=== PATIENT | female | born 1940 | race Caucasian/White ===

== ENCOUNTER 2019-04-04 21:52 | Emergency (ER) | payer MEDICARE, OTHER ==
[~2019-04-04] VITALS: Ht 170.2 cm; Wt 73.9 kg
[2019-04-04 21:52] VITALS: BP 142/63
--- NOTE | 2019-04-04 22:04 | NUR ---
PT WAS WHEELCHAIRED TO THE RESTROOM TO GIVE A U/A SPECIMEN. VSS
--- NOTE | 2019-04-04 22:09 | NUR ---
PT TAKEN TO RAD VIA WHEELCHAIR
--- NOTE | 2019-04-04 22:16 | NUR ---
89 Y/O F PRESENTED TO ED WITH C/O SOB AND COUGH X 3 WEEKS. BILATERAL WHEEZES TO UPPER LOBES ON EXPIRATION. 96% ON ROOM AIR. PRODUCTIVE COUGH WITH BROWN PHELGM. USED NEBULIZER AND INHALER WITH NO RELIEF. FAMILY AT BEDSIDE. ERMD NOTIFIED. WILL CONTINUE TO MONITOR.
--- NOTE | 2019-04-04 22:16 | NUR ---
PT BIB WHEELCHAIR FROM RAD TO ER BED 11
--- NOTE | 2019-04-04 23:04 | NUR ---
PT O2 SATURATION MAINTAINING AT 975 ON ROOM AIR. FAMILY AT BEDSIDE. WILL CONTINUE TO MONITOR. Addendum: 04/04/19 at 2313 by ABI PT O2 SATURATION MAINTAINING AT 97% ON ROOM AIR. FAMILY AT BEDSIDE. WILL CONTINUE TO MONITOR
[2019-04-05 01:14] VITALS: BP 135/81
--- NOTE | 2019-04-05 01:15 | NUR ---
Pt asleep. visible chest rise and fall. VSS at this time. family at bedside. will continue to monitor.
[2019-04-05] MEDS ORDERED: ALBUTEROL SULFATE/IPRATROPIU 3 ML SOL IH ONE (01:45)
[2019-04-05] MEDS ORDERED: ALBUTEROL 0.083% 2.5 MG/3 ML NEBU INH ONE (01:45)
[2019-04-05] MEDS ORDERED: predniSONE 20 MG TAB PO ONE (01:45)
--- NOTE | 2019-04-05 02:22 | NUR ---
Patient discharged with v/s stable. Written and verbal after care instructions given and explained. Patient alert, oriented and verbalized understanding of instructions. Ambulatory with steady gait. All questions addressed prior to discharge. ID band removed. Patient advised to follow up with PMD. Rx of Prednisone, motrin and albulerol given. Patient educated on indication of medication including possible reaction and side effects. Opportunity to ask questions provided and answered.
== END 2019-04-05 02:22 | disposition home or self-care (01) ==
LOC: MED 21:52
DX: R05 Cough (principal); R06.02 Shortness of breath; R07.89 Other chest pain; J45.909 Unspecified asthma, uncomplicated; E11.9 Type 2 diabetes mellitus without complications; I10 Essential (primary) hypertension; E78.5 Hyperlipidemia, unspecified
CPT/HCPCS: 71045; 81002; 93005; 94640; 99283; J7512; J7613; J7620; Q0092

== ENCOUNTER 2019-10-06 12:16 | Inpatient (IN) | payer OTHER, MEDICAID ==
[~2019-10-06] VITALS: Ht 157.5 cm; Wt 79.4 kg
[2019-10-06 12:27] VITALS: BP 141/51
--- NOTE | 2019-10-06 12:34 | NUR ---
PT AMBULATED TO BED 4.
[2019-10-06] MEDS ORDERED: KETOROLAC 30 MG/ML VIAL IVP ONE (12:45)
[2019-10-06] MEDS ORDERED: ONDANSETRON 4 MG/2 ML VIAL IVP ONE (12:45)
[2019-10-06] MEDS ORDERED: NACL 0.9% 1,000 ML IV SCH (12:45)
--- NOTE | 2019-10-06 12:50 | NUR ---
79 y/o female presented with n/v/d and abd pain x1 day. per patient pain is 10/10, pressure sensation. per pt has nka. medical hx of dm, htn, hld, stomach problems. per pt has had this problem in the past. pt takes medication on regular basis, was not able to state medications. last oral intake yesterday night and tolerated well. bowel sounds hyperactive. side rail x1. family at bedside.
--- NOTE | 2019-10-06 12:53 | NUR ---
PT PROVIDED 1 CC OF URINE AT THIS TIME.
--- NOTE | 2019-10-06 12:55 | NUR ---
LAB AT BEDSIDE
--- NOTE | 2019-10-06 13:00 | NUR ---
PTS BS IS CURRENTLY 110 FROM LAB DRAW
[2019-10-06 13:12] LABS: BASOPHILS % (AUTO) 0.2 % (0.0-2.0); EOSINOPHILS % (AUTO) 0.1 % (0.0-4.0); HEMATOCRIT 34.4 % (36-48); LYMPHOCYTES # (AUTO) 0.8 K/uL (2.5-16.5); LYMPHOCYTES % (AUTO) 13.3 % (20.5-51.1); MEAN CORPUSCULAR HEMOGLOBIN 29 pg (27-31); MEAN CORPUSCULAR HGB CONC 32 g/dL (33-37); MEAN CORPUSCULAR VOLUME 89.5 fL (80-94); MONOCYTES # (AUTO) 0.4 K/uL (0.8-1.0); NEUTROPHILS # (AUTO) 4.6 K/uL (1.8-7.7); NEUTROPHILS % (AUTO) 79.4 % (42.2-75.2); PLATELET COUNT (AUTO) 216 K/uL (140-450); RED BLOOD CELL COUNT(AUTO) 3.85 MIL/uL (4.20-5.40); WHITE BLOOD COUNT (AUTO) 5.8 K/uL (4.8-10.8)
--- NOTE | 2019-10-06 13:12 | NUR ---
PT COLLECTED URINE ENOUGH FOR URINE DIP, BUT NOT UA. DR ZHANG MADE AWARE, URINE DIP RESULTS SHOWN, WILL ASK PT TO COLLECT MORE URINE LATER.
[2019-10-06 13:18] LABS: ANION GAP 11.5 (8-16); CARBON DIOXIDE 28.7 mmol/L (21-32); CHLORIDE 104 mmol/L (98-107); CREATININE 0.8 mg/dL (0.6-1.3); GLUCOSE 110 mg/dL (74-106); POTASSIUM 4.2 mmol/L (3.5-5.1); SODIUM SERUM 140 mmol/L (136-145); UREA NITROGEN, BLOOD 16 mg/dL (7-18)
[2019-10-06 13:26] LABS: ALBUMIN 2.7 g/dL (3.4-5.0); ASPARTATE AMINOTRANSFERASE 18 U/L (15-37); TOTAL BILIRUBIN 0.3 mg/dL (0.0-1.0)
--- NOTE | 2019-10-06 14:00 | NUR ---
ANOTHER URINE SAMPLE COLLECTED AND WALKED DIRECTLY TO LAB
[2019-10-06 14:12] LABS: APPEARANCE,URINE CLEAR (CLEAR); BILIRUBIN,URINE NEGATIVE (NEGATIVE); BLOOD, URINE NEGATIVE (NEGATIVE); COLOR,URINE YELLOW (YELLOW); LEUKOCYTE ESTERASE ,URINE TRACE (NEGATIVE); NITRITE, URINE NEGATIVE (NEGATIVE); UGLUCOSE NEGATIVE (NEGATIVE)
[2019-10-06 14:14] LABS: LIPASE 7117 U/L (73-393)
[2019-10-06 14:18] LABS: RBC,URINE NONE SEEN /HPF (0-5)
[2019-10-06] MEDS ORDERED: ASPI-1205 PO (14:36)
[2019-10-06] MEDS ORDERED: METF1TER PO (14:36)
[2019-10-06] MEDS ORDERED: ENAL5TAB48 PO (14:36)
[2019-10-06] MEDS ORDERED: MECL-270 PO (14:36)
[2019-10-06] MEDS ORDERED: ALBU0.0912 IH (14:36)
[2019-10-06] MEDS ORDERED: NIAC500T30 PO (14:36)
[2019-10-06] MEDS ORDERED: MONT10TA35 PO (14:36)
[2019-10-06] MEDS ORDERED: ESCI10TA PO (14:36)
[2019-10-06] MEDS ORDERED: AMLO5TAB PO (14:36)
[2019-10-06] MEDS ORDERED: GABA300C PO (14:36)
[2019-10-06] MEDS ORDERED: BUDE1AER2 IH (14:36)
[2019-10-06] MEDS ORDERED: ATI.5 PO (14:36)
[2019-10-06] MEDS ORDERED: OMEP20TC12 PO (14:36)
[2019-10-06] MEDS ORDERED: CARV3.12 PO (14:36)
[2019-10-06] MEDS ORDERED: FERR325E14 PO (14:36)
[2019-10-06] MEDS ORDERED: SIMV10TA93 PO (14:36)
[2019-10-06] MEDS ORDERED: FURO-570 PO (14:36)
--- NOTE | 2019-10-06 14:39 | NUR ---
EMT AT BEDSIDE FOR EKG
[2019-10-06] MEDS ORDERED: NACL 0.9% 1,000 ML IV ONE (14:40)
--- NOTE | 2019-10-06 14:40 | NUR ---
PTS BP 98/42, DR ZHANG NOTIFIED. ANOTHER BOLUS TO BE STARTED
--- NOTE | 2019-10-06 14:41 | NUR ---
XRAY AT BEDSIDE
--- NOTE | 2019-10-06 14:48 | NUR ---
DR ZHANG AT BEDSIDE
--- NOTE | 2019-10-06 15:11 | NUR ---
PTS BP NOW 135/49. PT RESTING IN BED. PT ALERT AND AWAKE. FAMILY BEDSIDE
--- NOTE | 2019-10-06 15:46 | NUR ---
PER PT HAS 0/10 PAIN.
--- NOTE | 2019-10-06 16:10 | NUR ---
Patient will be admitted to care of DR MG. Admited to [facility]. Will go to room 105A. Belongings list completed. Report to SPENCER GONZALEZ.
--- NOTE | 2019-10-06 16:15 | NUR ---
RECEIVED REPORT FROM ER NURSE, PATIENT BROUGHT TO THE UNIT IN SUPINE POSITION IN NO OBSERVABLE DISTRESS. DX PANCREATITIS. H&P WAS COMPLETED, ADMISSION DOCUMENTATION IN PROCESS. PATIENT WAS ORIENTED TO THE UNIT, EDUCATED ON THE IMPORTANCE OF PRACTICING SAFETY MEASURES SUCH UTILIZING THE CALL LIGHT AND REQUESTING ASSISTANCE WHEN NECESSARY. DAUGHTER IS AT BEDSIDE. NO KNOWN ALLERGIES, NPO. WILL CONTINUE TO MONITOR.
[2019-10-06 16:53] VITALS: BP 116/42
[2019-10-06] MEDS ORDERED: MORPHINE SULFATE 2 MG/ML SYR IVP PRN (17:25)
[2019-10-06] MEDS ORDERED: INSULIN LISPRO SLIDING SCALE 100 UNITS/ML VIAL SUBQ PRN (17:25)
[2019-10-06] MEDS ORDERED: ONDANSETRON 4 MG/2 ML VIAL IVP PRN (17:25)
[2019-10-06] MEDS: NACL 0.9% 1,000 ML IV SCH (18:04)
--- NOTE | 2019-10-06 18:20 | NUR ---
N/S HANGING AT 125 ML/HR. NO DISTRESS NOTED. PATIENT IS RESTING IN BED. EDUCATED ON THE IMPORTANCE OF REMAINING ADEQUATELY HYDRATED. EDUCATED ON THE SIGNS AND SYMPTOMS OF WORSENING DISEASE PROCESS AND TO NOTIFY STAFF IF SUSPECTED DETERIORATION OCCURS. WILL CONTINUE TO MONITOR.
--- NOTE | 2019-10-06 19:17 | NUR ---
PATIENT REPORT HANDED OVER TO ONCOMING DIESEL MAINTENANCE TECHNICIAN NURSE FOR CONTINUED CARE. PATIENT LAYING IN BED WITH DAUGHTER AT BED SIDE. 125 ML/HR NS RUNNING. NO SIGNS OF DISTRESS NOTED.
--- NOTE | 2019-10-06 19:20 | NUR ---
RECEIVED PT FROM MICHELLE GONZALEZ PT PASHTO SPEAKER [id number] AMBULATES WITH SCENIC DESIGNER IV ON LEFT FA INFUSING WELL NOT DISTRESS NOTED ,PT'S DAUGHTER AT BED SIDE INITIAL ASSESSMENT DONE
[2019-10-06 20:00] VITALS: BP 138/57
--- NOTE | 2019-10-06 20:10 | NUR ---
;BLOOD SUGAR TEST 78 PT IS NPO X MEDS FOR DX PANCREATITIS, DR MG IS HERE AND SEE THE PT
[2019-10-06] MEDS: BLOOD GLUCOSE MONITORING 1 DEV DEV FS SCH (20:42)
[2019-10-06] MEDS: ACETAMINOPHEN 325 MG TAB PO PRN (20:43)
[2019-10-07] VITALS: BP 131/50
--- NOTE | 2019-10-07 | NUR ---
PT SLEEPING WELL NOT DISTRESS NOTED IV ON LEFT FA INFUSING WELL
[2019-10-07] MEDS: NACL 0.9% 1,000 ML IV SCH ×3 (01:30→17:25)
--- NOTE | 2019-10-07 01:39 | NUR ---
PT AMBULATES TOTHE RESTROOM VOIDING WELL REMAIN STABLE AT THIS TIME
--- NOTE | 2019-10-07 04:58 | NUR ---
sponge bath given linen nchanged iv on left fa infusing well denies any pain or discomfort
[2019-10-07 05:37] LABS: BASOPHILS % (AUTO) 0.2 % (0.0-2.0); EOSINOPHILS % (AUTO) 0.3 % (0.0-4.0); HEMATOCRIT 29.1 % (36-48); HEMOGLOBIN 9.5 g/dL (12.0-16.0); LYMPHOCYTES # (AUTO) 1.3 K/uL (2.5-16.5); LYMPHOCYTES % (AUTO) 23.2 % (20.5-51.1); MEAN CORPUSCULAR HEMOGLOBIN 29 pg (27-31); MEAN CORPUSCULAR HGB CONC 33 g/dL (33-37); MEAN CORPUSCULAR VOLUME 89.3 fL (80-94); MONOCYTES # (AUTO) 0.5 K/uL (0.8-1.0); MONOCYTES % (AUTO) 8.4 % (1.7-9.3); NEUTROPHILS # (AUTO) 3.8 K/uL (1.8-7.7); NEUTROPHILS % (AUTO) 67.9 % (42.2-75.2); PLATELET COUNT (AUTO) 188 K/uL (140-450); RED BLOOD CELL COUNT(AUTO) 3.26 MIL/uL (4.20-5.40); RED CELL DISTRIBUTION WIDTH 15.8 % (11.6-13.7); WHITE BLOOD COUNT (AUTO) 5.6 K/uL (4.8-10.8)
[2019-10-07] MEDS: BLOOD GLUCOSE MONITORING 1 DEV DEV FS SCH ×3 (06:11→16:49)
--- NOTE | 2019-10-07 06:12 | NUR ---
PT AMBULATES TO THE RESTROOM HOLDING IV POLE, DENIES ANY PAIN PT IS NPO X MEDS
--- NOTE | 2019-10-07 06:13 | NUR ---
BLOOD SUGAR TEST 75
--- NOTE | 2019-10-07 06:14 | NUR ---
;PT WILL BE ENDORSED TO DAY SHIFT NURSE FOR CONTINUE OF CARE
[2019-10-07 07:01] LABS: POTASSIUM 4.3 mmol/L (3.5-5.1); SODIUM SERUM 142 mmol/L (136-145)
[2019-10-07 07:02] LABS: ALBUMIN 2.2 g/dL (3.4-5.0); ANION GAP 10.3 (8-16); ASPARTATE AMINOTRANSFERASE 20 U/L (15-37); CHLORIDE 110 mmol/L (98-107); CREATININE 0.9 mg/dL (0.6-1.3); GLUCOSE 84 mg/dL (74-106); TOTAL BILIRUBIN 0.3 mg/dL (0.0-1.0); UREA NITROGEN, BLOOD 15 mg/dL (7-18)
[2019-10-07 07:03] LABS: AMYLASE 151 U/L (25-115); LIPASE 427 U/L (73-393)
--- NOTE | 2019-10-07 07:16 | NUR ---
RECEIVED REPORT FROM HOT BOX CHECKER FOR CONTINUATION OF CARE, PATIENT IS RESTING IN BED, NO SIGNS OF DISTRESS NOTED. N/S RUNNING IN LEFT FOREARM AT 125 ML/HR. IV IS PATENT. WILL CONTINUE TO MONITOR.
[2019-10-07 08:00] VITALS: BP 154/45
--- NOTE | 2019-10-07 08:22 | NUR ---
PATIENT HAS BEEN SCREENED AND CATEGORIZED MODERATE NUTRITION RISK. PATIENT WILL BE SEEN WITHIN 3-5 DAYS OF ADMISSION. 10/09/19 10/11/[address]
--- NOTE | 2019-10-07 09:30 | NUR ---
PATIENT IS RESTING AT BEDSIDE WITH NO SIGNS OF DISTRESS NOTED, OBSERVABLE CHEST RISE AND FALL. VITAL SIGNS ARE WNL. NO COMPLAINTS OF PAIN. [id number]. WILL CONTINUE TO MONITOR.
[2019-10-07 10:58] LABS: TRIGLYCERIDES 108 mg/dL (30-150)
[2019-10-07 10:59] LABS: CHOL/HDL RATIO 3.9 (1-4.5); HDL CHOLESTEROL 30 mg/dL (40-60); LDL (CALC) 66 mg/dL (60-100)
--- NOTE | 2019-10-07 12:00 | NUR ---
PATIENT IS RESTING AT BEDSIDE WITH NO SIGNS OF DISTRESS NOTED. DAUGHTER AT BEDSIDE, IV FLUID IS HANGING WITH NO ISSUES, IV LINE FLUSHED WITH NS. EDUCATED ON THE IMPORTANCE OF COMING TO STAFF IF SAFETY BECOMES A CONCERN. BED IS IN LOWEST POSITION. WILL CONTINUE TO MONITOR.
[2019-10-07] MEDS: ACETAMINOPHEN 325 MG TAB PO PRN (12:50)
--- NOTE | 2019-10-07 14:26 | NUR ---
PATIENT IS RESTING IN BED CONVERSATING WITH FAMILY AT BEDSIDE. NO SIGNS OF DISTRESS NOTED, COMPLAINED OF A HEADACHE 6/10, MEDICATED WITH TYLENOL. WILL CONTINUE TO MONITOR.
--- NOTE | 2019-10-07 15:11 | NUR ---
Booster Plant Operator Assessment/Discharge Plan: Name: Pro [facility] Home Relationship: son Pre-Admission Living Arrangements: Lives with Other Other: son: Por Walton and Pro's (Machelle) Prior ADL Needs Assistance Current Home Health Name/Tel: N/A Current DME/02 Name/Tel: walker, no home O2 Current Hospice Name/Tel: N/A Current Dialysis Name/Tel: N/A Healthcare Decision Maker: Patient Advance Directive No Information Taught: Advance Directive Person Taught: Patient Teaching Tools: Computer Generated Print Verbal Factors Affecting Learning: None Participation Level: Active Evaluation: Gestures Understanding Verbalizes Understanding Educator: GIOVANNI Smith Discipline: Case Mgt/Social Svcs Tentative Discharge Plan Summary: Patient is a 76 year old female, admitted for headache, dizziness, and hyponatremia. I met with patient at bedside. Patient alert and oriented x4. Patient speaks Romanian. Patient lives at home with her family and plans to return home upon discharge. Patient does not recall name of her pcp. Patient's son Pro assist her with ADLs she cannot complete independently. Pro also helps patient with transportation. Patient denied alcohol/substance abuse. Patient also denied hx of mental health. Booster Plant Operator and/or Casino Gaming Worker will follow up as needed. Signature: GIOVANNI Smith Date: Oct 07, 2019
--- NOTE | 2019-10-07 15:15 | NUR ---
DC PLANNIN YO FEMALE FROM HOME, WHO CAME IN DUE TO ABDOMINAL PAIN. PAST MEDICAL HISTORY INCLUDE HTN, DM II, HYPERLIPIDEMIA AND PERIPHERAL NEUROPATHY. INITIAL DIAGNOSIS OF ACUTE PANCREATITIS. LIPASE ON ADMISSION 7117, TODAY 427. CXR SHOWED PROBABLE ATELECTASIS OF THE LEFT LUNG BASE. DC PLAN PENDING ON THE PATIENT'S RESPONSE TO TREATMENT.
[2019-10-07 16:00] VITALS: BP 165/43
--- NOTE | 2019-10-07 16:49 | NUR ---
PATIENT IS RESTING IN BED, VITAL SIGNS ARE WNL, CHEST RISE AND FALL OBSERVED. BLOOD GLUCOSE IS 71 NO COVERAGE NEEDED. COMPLAINING OF DIARRHEA. MD AWARE. WILL CONTINUE TO MONITOR.
[2019-10-07] MEDS ORDERED: LOPERAMIDE 2 MG CAP PO PRN (17:00)
[2019-10-07] MEDS ORDERED: ALBUTEROL HFA MDI 90 MCG/ACTUATION 8 GM INH SCH (18:10)
[2019-10-07] MEDS ORDERED: LORazepam 0.5 MG TAB PO PRN (18:10)
[2019-10-07 18:54] VITALS: BP 165/43
--- NOTE | 2019-10-07 19:26 | NUR ---
ENDORSED PT TO PM RN. COMPLETED DISCHARGE PAPERWORK IF PT FEELS SHE IS OK FOR DISCHARGE SHE DISCHARGE AFTER TOLERATING FULL LIQUID DIET PER DR. MG. ALL SAFETY MEASURES ARE IN PLACE PT DAUGHTER IS AT BEDSIDE. PT AND DAUGHTER ARE OK WITH PLAN
--- NOTE | 2019-10-07 19:30 | NUR ---
ASSUMED CARE OF PATIENT, AWAKE, ALERT AND ORIENTED. FAMILY AT BEDSIDE. FULL LIQUID TRAY GIVEN, IF TOLERATED WILL DC HOME. CALL LIGHT WITHIN REACH. VITAL SIGNS STABLE. PLAN OF CARE DISCUSSED WITH PATIENT AND FAMILY MEMBER, VERBALIZED UNDERSTANDING WELL. CARE BOARD UPDATED.
--- NOTE | 2019-10-07 20:30 | NUR ---
TOLERATED FULL LIQUID WELL, NO COMPLAINS, NO NAUSEA/VOMITTING NOTED. FEELING WELL TO DC HOME. DC IV/HEPLOCK. DC [place]. PAPERS SIGNED. DC INSTRUCTIONS GIVEN. FOLLOW-UP WITH PCP IN 1 WEEK. DC VIA WHEELCHAIR ACCOMPANIED BY FAMILY MEMBER.
[2019-10-07] MEDS ORDERED: NON-FORMULARY ITEM (Budesonide/Formoterol Fumarate* (Symbicort 80-4.5 Mcg Inhaler*) 2 PUFF IH SCH (21:00)
[2019-10-07] MEDS ORDERED: CARVEDILOL 3.125 MG TAB PO SCH (21:00)
[2019-10-08] MEDS ORDERED: ESCITALOPRAM 20 MG TAB PO SCH (09:00)
[2019-10-08] MEDS ORDERED: ASPIRIN 325 MG TAB PO SCH (09:00)
[2019-10-08] MEDS ORDERED: NIACIN 500 MG TAB PO SCH (09:00)
[2019-10-08] MEDS ORDERED: amLODIPine 5 MG TAB PO SCH (09:00)
[2019-10-08] MEDS ORDERED: ENALAPRIL 5 MG TAB PO SCH (09:00)
[2019-10-08] MEDS ORDERED: FERROUS SULFATE 325 MG TABEC PO SCH (09:00)
[2019-10-08] MEDS ORDERED: FUROSEMIDE 40 MG TAB PO SCH (09:00)
[2019-10-08] MEDS ORDERED: GABAPENTIN 300 MG CAP PO SCH (09:00)
[2019-10-08] MEDS ORDERED: MONTELUKAST SODIUM 10 MG TAB PO SCH (09:00)
== END 2019-10-07 20:20 | disposition home or self-care (01) | DRG 439 ==
LOC: MED 12:16 → MTU 15:57
PROVIDERS: ADMIT Internal Medicine Pulmonary Disease; ATTEND Internal Medicine Pulmonary Disease
DX: K85.30 Drug induced acute pancreatitis without necrosis or infection (principal); E44.1 Mild protein-calorie malnutrition; E78.5 Hyperlipidemia, unspecified; E66.9 Obesity, unspecified; I10 Essential (primary) hypertension; J45.909 Unspecified asthma, uncomplicated; F17.210 Nicotine dependence, cigarettes, uncomplicated; E11.42 Type 2 diabetes mellitus with diabetic polyneuropathy; E78.1 Pure hyperglyceridemia; T46.6X5A Adverse effect of antihyperlipidemic and antiarteriosclerotic drugs, initial encounter; Z79.82 Long term (current) use of aspirin; Z79.899 Other long term (current) drug therapy; Y92.89 Other specified places as the place of occurrence of the external cause; Z68.32 Body mass index [BMI] 32.0-32.9, adult
CPT/HCPCS: 36415; 71045; 80053; 81001; 82150; 82948; 83690; 85025; 87081; 87086; 93005; 96361; 96374; 96375; 99285; J1815; J1885; J2405; J7030; Q0092

== ENCOUNTER 2021-03-30 06:54 | Emergency (ER) | payer OTHER, MEDICAID ==
[~2021-03-30] VITALS: Ht 162.6 cm; Wt 73.5 kg
[~2021-03-30 06:54] MED LIST: ALBU0.0912 IH; AMLO5TAB PO; ASPI-1205 PO; ATI.5 PO; BUDE1AER2 IH; CARV3.12 PO; ENAL5TAB48 PO; ESCI10TA PO; FERR325E14 PO; FURO-570 PO; GABA300C PO; MECL-416 PO; MONT10TA35 PO; NIAC500T30 PO; OMEP20TC12 PO
[2021-03-30 06:59] VITALS: BP 172/56
--- NOTE | 2021-03-30 07:10 | NUR ---
DR PRITCHARD AT BEDSIDE EXAMINING PT
--- NOTE | 2021-03-30 07:10 | NUR ---
80 Y/O FEMALE C/O R SHOULDER PAIN X4 WEEKS S/P FALL. PT STATES 8/10 PAIN. TENDER UPON PALPATION. MEDHX: HTN, HLD, ANEMIA, ANIXETY NKA
[2021-03-30] MEDS ORDERED: ACETAMINOPHEN 325 MG TAB PO ONE (07:15)
--- NOTE | 2021-03-30 07:15 | NUR ---
XRAY AT BEDSIDE
--- NOTE | 2021-03-30 07:42 | NUR ---
PT PLACED IN RIGHT SHOULDER SLING IMMOBILIZOR.
[2021-03-30 07:56] VITALS: BP 172/56
--- NOTE | 2021-03-30 07:56 | NUR ---
Patient discharged with v/s stable. Written and verbal after care instructions given and explained. Patient alert, oriented and verbalized understanding of instructions. Ambulatory with steady gait. All questions addressed prior to discharge. ID band removed. Patient advised to follow up with PMD. Opportunity to ask questions provided and answered.
== END 2021-03-30 07:56 | disposition home or self-care (01) ==
LOC: MED 06:54
DX: M25.511 Pain in right shoulder (principal); I10 Essential (primary) hypertension; Z79.899 Other long term (current) drug therapy; Z98.890 Other specified postprocedural states; Z79.82 Long term (current) use of aspirin
CPT/HCPCS: 73030; 99283

== ENCOUNTER 2021-10-16 16:01 | Emergency (ER) | payer OTHER, MEDICAID, SELFPAY ==
[~2021-10-16] VITALS: Ht 160 cm; Wt 75.7 kg
[~2021-10-16 16:01] MED LIST changes: +OMEP-278 PO; -OMEP20TC12 PO
--- NOTE | 2021-10-16 16:09 | NUR ---
CALLED PT NO ANSWER AT THIS TIME IN LOBBY OR OUTSIDE
[2021-10-16 16:12] VITALS: BP 140/60
--- NOTE | 2021-10-16 16:15 | NUR ---
PT AMBULATED TO BED 3 AT THIS TIME
--- NOTE | 2021-10-16 17:03 | NUR ---
ERMD AT BEDSIDE EVALUATING PT.
--- NOTE | 2021-10-16 17:16 | NUR ---
81 Y/O F PRESENT TO ED WITH COUGH, DIARRHEA, SOB AND CHEST PAIN FOR 2 DAYS. DENIES FEVER, N&V. UNRECALLED MEDS TAKEN. IN ED, VSS. COARSE BREATH SOUNDS ON ALL LUNG BAKER. PT POSITIONED COMFORTABLY IN BED WITH 2 SIDERAILS UP. ERMD MADE AWARE OF PT STATUS. PMH: HTN, HLD MEDS: SEE LIST NKA
[2021-10-16 17:30] LABS: BASOPHILS % (AUTO) 0.6 % (0.0-2.0); EOSINOPHILS # (AUTO) 0.1 K/uL (0-0.4); EOSINOPHILS % (AUTO) 1.7 % (0.0-4.0); HEMATOCRIT 30.5 % (36-48); HEMOGLOBIN 10.2 g/dL (12.0-16.0); LYMPHOCYTES # (AUTO) 1.1 K/uL (2.5-16.5); LYMPHOCYTES % (AUTO) 17.4 % (20.5-51.1); MEAN CORPUSCULAR HEMOGLOBIN 31 pg (27-31); MEAN CORPUSCULAR HGB CONC 34 g/dL (33-37); MONOCYTES # (AUTO) 0.9 K/uL (0.8-1.0); NEUTROPHILS # (AUTO) 4.1 K/uL (1.8-7.7); NEUTROPHILS % (AUTO) 66.3 % (42.2-75.2); PLATELET COUNT (AUTO) 234 K/uL (140-450); RED BLOOD CELL COUNT(AUTO) 3.35 MIL/uL (4.20-5.40); RED CELL DISTRIBUTION WIDTH 15.5 % (11.6-13.7); WHITE BLOOD COUNT (AUTO) 6.2 K/uL (4.8-10.8)
[2021-10-16 17:43] LABS: ALBUMIN 3.1 g/dL (3.4-5.0); ANION GAP 10.9 (8-16); ASPARTATE AMINOTRANSFERASE 12 U/L (15-37); CARBON DIOXIDE 28.3 mmol/L (21-32); CHLORIDE 107 mmol/L (98-107); GLUCOSE 135 mg/dL (74-106); POTASSIUM 4.2 mmol/L (3.5-5.1); SODIUM SERUM 142 mmol/L (136-145); TOTAL BILIRUBIN 0.2 mg/dL (0.0-1.0); UREA NITROGEN, BLOOD 16 mg/dL (7-18)
--- NOTE | 2021-10-16 19:23 | NUR ---
MACKENZIE SWAB DONE. WALKED TO LAB
--- NOTE | 2021-10-16 20:28 | NUR ---
KIM SIDHU (DAUGHTER)
--- NOTE | 2021-10-16 21:00 | NUR ---
Patient appears to be resting comfortably in bed. Vital Signs within normal limits. Respirations even and unlabored.
[2021-10-16] MEDS ORDERED: predniSONE 20 MG TAB PO ONE (21:25)
[2021-10-16] MEDS ORDERED: ALBUTEROL SULFATE/IPRATROPIU 3 ML SOL IH ONE (21:25)
[2021-10-16] MEDS ORDERED: BENZONATATE 100 MG CAPLF PO SCH (21:25)
[2021-10-16] MEDS ORDERED: AMOXIL/CLAVULANATE 875/125 MG 1 TAB PO ONE (21:25)
[2021-10-16] MEDS ORDERED: AZITHROMYCIN 250 MG TAB PO ONE (21:25)
[2021-10-16] MEDS ORDERED: AZIT250T4 PO (22:35)
[2021-10-16] MEDS ORDERED: BENZ200C4 PO (22:35)
[2021-10-16] MEDS ORDERED: PROM118S5 PO (22:35)
[2021-10-16] MEDS ORDERED: AMOX-1000 PO (22:35)
[2021-10-16] MEDS ORDERED: PRED20TA5 PO (22:35)
[2021-10-16] MEDS ORDERED: ACETAMINOPHEN 325 MG TAB PO ONE (22:50)
[2021-10-16] MEDS ORDERED: ACETAMINOPHEN 325 MG TAB ONE (22:55)
--- NOTE | 2021-10-16 22:59 | NUR ---
Patient discharged with v/s stable. Written and verbal after care instructions given and explained. Patient alert, oriented and verbalized understanding of instructions. Ambulatory with steady gait. All questions addressed prior to discharge. ID band removed. Patient advised to follow up with PMD. Rx of AZITHROMYCIN, PREDNISONE, AUGMENTIN, PROMETHZAINE, BENZONATAE given. Patient educated on indication of medication including possible reaction and side effects. Opportunity to ask questions provided and answered.
[2021-10-16 23:00] VITALS: BP 158/68
== END 2021-10-16 22:59 | disposition home or self-care (01) ==
LOC: MED 16:01
DX: J40 Bronchitis, not specified as acute or chronic (principal); Z20.822 Contact with and (suspected) exposure to COVID-19; J18.9 Pneumonia, unspecified organism; I10 Essential (primary) hypertension; Z79.899 Other long term (current) drug therapy; Z79.82 Long term (current) use of aspirin
CPT/HCPCS: 36415; 71045; 80053; 84484; 85025; 87426; 93005; 94640; 99285; J7512; Q0092

== ENCOUNTER 2022-10-28 10:50 | Emergency (ER) | payer OTHER, MEDICAID ==
[~2022-10-28] VITALS: Ht 165.1 cm; Wt 74.0 kg
[~2022-10-28 10:50] MED LIST changes: +AMOX-1000 PO; +AZIT250T4 PO; +BENZ200C4 PO; +PRED20TA5 PO; +PROM118S5 PO
[2022-10-28 10:57] VITALS: BP 187/87
--- NOTE | 2022-10-28 11:16 | NUR ---
PT W/C ASSISTED TO BED 1.
--- NOTE | 2022-10-28 11:59 | NUR ---
here for cough, bodyache, chest wall pain when coughing, nsr on cm, o2 sat 99% ra, sr up times 2, awaits md
[2022-10-28] MEDS ORDERED: ACETAMINOPHEN 325 MG TAB ONE (12:57)
--- NOTE | 2022-10-28 13:09 | NUR ---
tylenol given for bodyache and headache 04/21 as ordered, nsr on cm, o2 sat 96% ra, sr up times 2
[2022-10-28] MEDS ORDERED: ACETAMINOPHEN 325 MG TAB PO ONE (13:10)
[2022-10-28 13:22] LABS: BASOPHILS % (AUTO) 0.5 % (0.0-2.0); EOSINOPHILS # (AUTO) 0.1 K/uL (0-0.4); EOSINOPHILS % (AUTO) 1.4 % (0.0-4.0); HEMATOCRIT 37.7 % (36-48); HEMOGLOBIN 12.4 g/dL (12.0-16.0); LYMPHOCYTES # (AUTO) 1.7 K/uL (2.5-16.5); LYMPHOCYTES % (AUTO) 25.9 % (20.5-51.1); MEAN CORPUSCULAR HEMOGLOBIN 29 pg (27-31); MEAN CORPUSCULAR HGB CONC 33 g/dL (33-37); MEAN CORPUSCULAR VOLUME 89.2 fL (80-94); MONOCYTES # (AUTO) 0.8 K/uL (0.8-1.0); MONOCYTES % (AUTO) 12.4 % (1.7-9.3); NEUTROPHILS % (AUTO) 59.8 % (42.2-75.2); PLATELET COUNT (AUTO) 239 K/uL (140-450); RED BLOOD CELL COUNT(AUTO) 4.22 MIL/uL (4.20-5.40); RED CELL DISTRIBUTION WIDTH 14.5 % (11.6-13.7); WHITE BLOOD COUNT (AUTO) 6.6 K/uL (4.8-10.8)
[2022-10-28 13:39] LABS: ALBUMIN 3.3 g/dL (3.4-5.0); ANION GAP 11.6 (8-16); ASPARTATE AMINOTRANSFERASE 19 U/L (15-37); CARBON DIOXIDE 31.4 mmol/L (21-32); CHLORIDE 106 mmol/L (98-107); CREATININE 0.8 mg/dL (0.6-1.3); GLUCOSE 110 mg/dL (74-106); SODIUM SERUM 144 mmol/L (136-145); TOTAL BILIRUBIN 0.3 mg/dL (0.0-1.0); UREA NITROGEN, BLOOD 10 mg/dL (7-18)
--- NOTE | 2022-10-28 15:30 | NUR ---
pt a/o times 4, nad, denies any pain, no sob, no cough at this time, o2 sat 99% ra, sr up times 2, awaits dispo
[2022-10-28] MEDS ORDERED: ALBUTEROL SULFATE/IPRATROPIU 3 ML SOL IH ONE (16:30)
[2022-10-28] MEDS ORDERED: AMOX-1230 PO ×2 (16:40→17:56)
[2022-10-28] MEDS ORDERED: PRED20TA5 PO ×2 (16:40→17:56)
--- NOTE | 2022-10-28 17:10 | NUR ---
duoneb given by rt, will be dc home
[2022-10-28 17:25] VITALS: BP 154/68
--- NOTE | 2022-10-28 17:33 | NUR ---
Patient discharged with v/s stable. Written and verbal after care instructions given and explained. Patient verbalized understanding. Ambulatory with steady gait w a cane . All questions addressed prior to discharge. Advised to follow up with PMD in 2-3 days
== END 2022-10-28 17:25 | disposition home or self-care (01) ==
LOC: MED 10:50
DX: J40 Bronchitis, not specified as acute or chronic (principal); Z20.822 Contact with and (suspected) exposure to COVID-19; I25.10 Atherosclerotic heart disease of native coronary artery without angina pectoris; I10 Essential (primary) hypertension; E11.9 Type 2 diabetes mellitus without complications; Z79.4 Long term (current) use of insulin; Z79.899 Other long term (current) drug therapy
CPT/HCPCS: 36415; 71045; 80053; 85025; 93005; 94640; 99285

== ENCOUNTER 2023-05-23 17:19 | Emergency (ER) | payer OTHER ==
[~2023-05-23] VITALS: Ht 165.1 cm; Wt 72.6 kg
[~2023-05-23 17:19] MED LIST changes: +AMOX-1230 PO; +MONT-72 PO; -MONT10TA35 PO
[2023-05-23 18:03] VITALS: BP 108/68; PULSE 70; RESP 18; TEMP 98.6; O2SAT 96
--- NOTE | 2023-05-23 18:05 | NUR ---
AMBULATES WITH STEADY GAIT, BACK IN THE LOBBY
[2023-05-23 19:05] LABS: BASOPHILS % (AUTO) 0.4 % (0.0-2.0); EOSINOPHILS # (AUTO) 0.1 K/uL (0-0.4); EOSINOPHILS % (AUTO) 1.1 % (0.0-4.0); HEMATOCRIT 37.3 % (36-48); LYMPHOCYTES # (AUTO) 1.3 K/uL (2.5-16.5); LYMPHOCYTES % (AUTO) 22.5 % (20.5-51.1); MEAN CORPUSCULAR HEMOGLOBIN 30 pg (27-31); MEAN CORPUSCULAR HGB CONC 32 g/dL (33-37); MEAN CORPUSCULAR VOLUME 92.9 fL (80-94); MONOCYTES # (AUTO) 0.7 K/uL (0.8-1.0); MONOCYTES % (AUTO) 11.6 % (1.7-9.3); NEUTROPHILS # (AUTO) 3.8 K/uL (1.8-7.7); NEUTROPHILS % (AUTO) 64.4 % (42.2-75.2); PLATELET COUNT (AUTO) 190 K/uL (140-450); RED BLOOD CELL COUNT(AUTO) 4.01 MIL/uL (4.20-5.40); RED CELL DISTRIBUTION WIDTH 16.1 % (11.6-13.7)
[2023-05-23 19:51] LABS: ALBUMIN 3.7 g/dL (3.4-5.0); ASPARTATE AMINOTRANSFERASE 19 U/L (15-37); CHLORIDE 108 mmol/L (98-107); CREATININE 0.9 mg/dL (0.6-1.3); GLUCOSE 108 mg/dL (74-106); SODIUM SERUM 142 mmol/L (136-145); TOTAL BILIRUBIN 0.3 mg/dL (0.0-1.0); UREA NITROGEN, BLOOD 15 mg/dL (7-18)
[2023-05-23] MEDS ORDERED: ONDANSETRON 4 MG ODT PO ONE (20:30)
[2023-05-23] MEDS ORDERED: KETOROLAC 60 MG/2 ML VIAL IM ONE (20:30)
[2023-05-23] MEDS ORDERED: AZIT250T4 PO (21:06)
[2023-05-23] MEDS ORDERED: ONDA8TAB87 PO (21:06)
[2023-05-23] MEDS ORDERED: ATA25 PO (21:06)
[2023-05-23] MEDS ORDERED: IBUP-2213 PO (21:06)
--- NOTE | 2023-05-23 21:11 | NUR ---
MEDICATED ORDERED FOR PAIN
[2023-05-23 21:30] VITALS: BP 108/68; PULSE 70; RESP 18; TEMP 98.6; O2SAT 96
--- NOTE | 2023-05-23 21:30 | NUR ---
Patient discharged with v/s stable. Written and verbal after care instructions given and explained. Patient alert, oriented and verbalized understanding of instructions. Ambulatory with steady gait. All questions addressed prior to discharge. ID band removed. Patient advised to follow up with PMD. Rx of ATARAX, Z PACK, ZOFRAN given. Patient educated on indication of medication including possible reaction and side effects. Opportunity to ask questions provided and answered.
== END 2023-05-23 21:30 | disposition home or self-care (01) ==
LOC: MED 17:19
DX: J18.9 Pneumonia, unspecified organism (principal); F41.9 Anxiety disorder, unspecified; R06.02 Shortness of breath; E11.9 Type 2 diabetes mellitus without complications; I10 Essential (primary) hypertension; Z90.710 Acquired absence of both cervix and uterus; Z98.890 Other specified postprocedural states; Z79.899 Other long term (current) drug therapy; Z79.2 Long term (current) use of antibiotics; Z79.82 Long term (current) use of aspirin
CPT/HCPCS: 36415; 71045; 80053; 83880; 84484; 85025; 87040; 93005; 96372; 99285; J1885; Q0162